=== PATIENT | female | born 1965 | race African-American/Black ===

== ENCOUNTER 2017-12-21 07:38 | Outpatient (CLI) | payer OTHER ==
[2017-12-21] MEDS ORDERED: ISOVUE-370 76%-LOCM 1 ML ONE (11:21)
== END 2017-12-21 07:39 | disposition home or self-care (01) ==
LOC: BICCT 07:38
PROVIDERS: ATTEND Internal Medicine
DX: K62.5 Hemorrhage of anus and rectum (principal); K59.00 Constipation, unspecified; R10.84 Generalized abdominal pain; R63.4 Abnormal weight loss; Z86.010 Personal history of colon polyps; N13.30 Unspecified hydronephrosis; N27.0 Small kidney, unilateral
CPT/HCPCS: 74177